=== PATIENT | male | born 1965 | race Caucasian/White ===

== ENCOUNTER 2020-09-13 06:52 | Observation (INO) | payer BC ==
[2020-09-13] MEDS ORDERED: ASPIRIN 81 MG PO STA (07:13)
[2020-09-13] MEDS ORDERED: NITROGLYCERIN SL TABS 0.4 MG TAB SUBLINGUAL STA (07:13)
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
[2020-09-13 07:51] LABS: Basophils % (A) 1 %; Eosinophils # (A) 0.4 k/uL (0-0.7); Eosinophils % (A) 7 %; HCT 48.5 % (39.0-53.0); HGB 16.5 gm/dL (13.0-17.5); Lymphocytes # (A) 1.2 k/uL (1.0-4.8); Lymphocytes % (A) 18 %; MCH 31.9 pg (25.0-35.0); MCV 93.9 fL (80.0-100.0); Mean Platelet Volume 7.7; Monocytes # (A) 0.4 k/uL (0-1.0); Monocytes % (A) 6 %; Neutrophils # (A) 4.6 k/uL (1.3-7.7); Neutrophils % (A) 67 %; Platelet Count 231 k/uL (150-450); RBC 5.16 m/uL (4.30-5.90); RDW 13.3 % (11.5-15.5); WBC 6.8 k/uL (3.8-10.6)
--- NOTE | 2020-09-13 07:54 | XR ---
EXAMINATION TYPE: XR chest 2V DATE OF EXAM: 09/13/2020 COMPARISON: None INDICATION: Pain TECHNIQUE: Frontal and lateral views of the chest are obtained. FINDINGS: The heart size is normal. The pulmonary vasculature is normal. The lungs are clear. Stimulator leads are within the thoracic region. IMPRESSION: 1. No acute pulmonary process.
[2020-09-13 08:00] LABS: ALT 23 U/L (4-49); AST 25 U/L (17-59); African American GFR (CKD) >90 (>60 ml/min/1.73 sqM); Albumin 4.3 g/dL (3.5-5.0); Alkaline Phosphatase 58 U/L (38-126); Amylase 91 U/L (30-110); Anion Gap 8 mmol/L; Blood Urea Nitrogen 18 mg/dL (9-20); Calcium 9.1 mg/dL (8.4-10.2); Carbon Dioxide 26 mmol/L (22-30); Chloride 106 mmol/L (98-107); Glucose 123 mg/dL (74-99); Lipase 200 U/L (23-300); Magnesium 2.1 mg/dL (1.6-2.3); Non-African American GFR(CKD) 87 (>60 ml/min/1.73 sqM); Sodium 140 mmol/L (137-145); Total Bilirubin 1.2 mg/dL (0.2-1.3); Total Protein 7.5 g/dL (6.3-8.2)
[2020-09-13 08:02] LABS: Partial Thromboplastin Time 23.6 sec (22.0-30.0); Prothrombin Time 10.4 sec (9.0-12.0)
[2020-09-13] MEDS ORDERED: MAG HYDROX/AL HYDROX/SIMETH 30 ML, HYOSCYAMINE ELIXIR 10 ML, LIDOCAINE VISCOUS 2% 10 ML PO STA ×3 (08:52)
[2020-09-13] MEDS ORDERED: NITROGLYCERIN SL TABS 0.4 MG TAB SUBLINGUAL PRN (09:36)
--- NOTE | 2020-09-13 12:31 | ECHOF ---
Referral Reason:Chest pain MEASUREMENTS -------- HEIGHT: 175.3 cm WEIGHT: 121.1 kg BP: 145/72 RVIDd: 3.2 cm (< 3.3) IVSd: 1.3 cm (0.6 - 1.1) LVIDd: 4.7 cm (3.9 - 5.3) LVPWd: 1.2 cm (0.6 - 1.1) IVSs: 2.0 cm LVIDs: 3.1 cm LVPWs: 2.0 cm LA Diam: 3.8 cm (2.7 - 3.8) LAESV Index (A-L): 28.75 ml/m Ao Diam: 3.8 cm (2.0 - 3.7) AV Cusp: 2.6 cm (1.5 - 2.6) MV EXCURSION: 17.297 mm (> 18.000) MV EF SLOPE: 106 mm/s (70 - 150) EPSS: 0.9 cm MV E Mikey: 0.84 m/s MV DecT: 211 ms MV A Mikey: 0.59 m/s MV E/A Ratio: 1.43 RAP: 5.00 mmHg RVSP: 26.95 mmHg FINDINGS -------- Sinus rhythm. This was a technically adequate study. The left ventricular size is normal. There is mild concentric left ventricular hypertrophy. Overa ll left ventricular systolic function is normal with, an EF between 60 - 65 %. The right ventricle is normal in size. Normal LA size by volume 22+/-6 ml/m2. The right atrium is normal in size. Interatrial and interventricular septum intact. The aortic valve is trileaflet and appears structurally normal. The mitral valve is normal. Mild tricuspid regurgitation present. Right ventricular systolic pressure is normal at < 35 mmHg. The pulmonic valve was not well visualized. The aortic root is dilated measuring 3.8cm. Normal inferior vena cava with normal inspiratory collapse consistent with estimated right atrial pre ssure of 5 mmHg. There is no pericardial effusion. CONCLUSIONS -------- 1. The left ventricular size is normal. 2. There is mild concentric left ventricular hypertrophy. 3. Overall left ventricular systolic function is normal with, an EF between 60 - 65 %. 4. Mild tricuspid regurgitation present. 5. The aortic root is dilated measuring 3.8cm. 6. There is no pericardial effusion. COMPENSATION AND BENEFITS ADMINISTRATOR: LEOBARDO Umanzor
--- NOTE | 2020-09-13 12:40 | CONS ---
CONSULTATION CHIEF COMPLAINT: Chest pain. Shady is a 55-year-old gentleman with history of chronic back pain via stimulator in the back, came to hospital complaining of chest pain. His discomfort is sharp left- sided goes in a linear fashion. It was not associated with diaphoresis. There was no clear-cut relieving or exacerbating factors. It in fact improved with activity. He read about it online and was concerned that it is his heart. Came to the emergency room and got admitted. EKG does not reveal ischemic changes. Two sets of cardiac enzymes are negative. Hemoglobin is normal. The patient has history of chronic back pain and strong family history of premature coronary artery disease. There is no history of hypertension, diabetes, dyslipidemia. PAST MEDICAL HISTORY: Negative for hypertension, diabetes dyslipidemia. Significant for chronic back pain. MEDICATIONS: Include omeprazole and naproxen along with green tea extract and Darlene. ALLERGIES: PENICILLIN. FAMILY HISTORY: Negative for premature coronary artery disease. SOCIAL HISTORY: Negative for current smoking, EtOH abuse, or drug abuse. REVIEW OF SYSTEMS: HEENT is unremarkable. Cardiac as described above. Respiratory as described above. GI negative. Genitourinary negative. Allergy/Immunology: Negative. Skin negative. Musculoskeletal negative. Endocrine negative. Derm negative. Constitutional negative. Oncological negative. CALL CENTER DISPATCHER negative. Rest of the system review is not relevant. PHYSICAL EXAM: Afebrile. Heart rate is 98 beats a minute. Blood pressure is 130/62, respirations 18, O2 saturation is 96% on room air. There is no jugular venous distention. Carotid upstroke is normal. There is no bruit. Chest exam reveals good air entry bilaterally. Heart exam reveals first and second heart sounds. No gallop. No murmur. No rub. Abdomen is soft, nontender. Exam of extremities did not reveal any edema. Peripheral pulses are felt. CALL CENTER DISPATCHER exam did not reveal focal neurological deficits. ASSESSMENT: Precordial chest pain. PLAN: I will obtain serial troponins to rule out myocardial infarction. Review the echo that he had this morning. I will schedule him for a dobutamine echo tomorrow if the myocardial infarction is ruled out. MMODL / IJN: [id number] /
[2020-09-13] MEDS: PANTOPRAZOLE 40 MG TABLET PO SCH (12:51)
[2020-09-13] MEDS: ENOXAPARIN 40 MG/0.4 ML SYRINGE SQ SCH (12:51)
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
[2020-09-14 04:49] LABS: Cholesterol 180 mg/dL (<200); HDL Cholesterol 41 mg/dL (40-60); LDL Cholesterol,Calculated 108 mg/dL (0-99); Triglycerides 154 mg/dL (<150)
[2020-09-14] MEDS ORDERED: DOBUTamine DRIP for NUC MED 500 MG in DEXTROSE/WATER 1 250ML.BAG IV PRN (08:00)
[2020-09-14] MEDS: PANTOPRAZOLE 40 MG TABLET PO SCH (08:29)
[2020-09-14] MEDS: ENOXAPARIN 40 MG/0.4 ML SYRINGE SQ SCH (08:29)
[2020-09-14] MEDS ORDERED: ASPIRIN 325 MG TAB PO SCH (09:00)
[2020-09-14] MEDS ORDERED: METOPROLOL TARTRATE 5 MG/5 ML VIAL IVP ONE (10:20)
[2020-09-14] MEDS ORDERED: ATROPINE SULFATE 0.1 MG/ML 10ML SYRINGE ONE (10:20)
[2020-09-14] MEDS ORDERED: ACETAMINOPHEN TAB 325 MG TAB PO PRN (11:54)
--- NOTE | 2020-09-14 12:28 | P.PN ---
Subjective Progress Note Date: 09/14/20 HISTORY OF PRESENT ILLNESS: Patient examined this morning at the bedside. Patient denies chest pain or pressure. Denies shortness of breath. Echocardiogram completed revealing ejection fraction 60-65% and mild tricuspid regurgitation. PHYSICAL EXAM: VITAL SIGNS: Reviewed. GENERAL: Well-developed in no acute distress. NECK: Supple. No JVD or thyromegaly LUNGS: Respirations even and unlabored. Lungs essentially clear to auscultation bilaterally. HEART: Regular rate and rhythm. S1 and S2 heard. EXTREMITIES: Normal range of motion. No clubbing or cyanosis. Peripheral pulses intact. No lower extremity edema ASSESSMENT: Precordial chest pain PLAN: Patient underwent between stress test today. Patient did have some ST depression in the recovery phase. However his to be making images did not reveal any abnormalities per Dr. Baeza. Please see full dictated stress test report for further details. Patient may be discharged home today from a cardiac standpoint. Nurse practitioner note has been reviewed by physician. Signing provider agrees with the documented findings, assessment, and plan of care. Objective - Vital Signs Vital signs: Vital Signs Temp 97.5 F L 09/14/20 08:13 Pulse 55 L 09/14/20 08:13 Resp 20 09/14/20 08:13 BP 112/74 09/14/20 08:13 Pulse Ox 97 09/14/20 08:13 Intake & Output 09/13/20 09/14/20 09/14/20 18:59 06:59 18:59 Weight 121.109 kg 121.11 kg Other: Voiding Method Toilet Toilet # Voids 1 1 - Labs CBC & Chem 7: 09/13/20 07:36 09/13/20 07:36 Labs: Abnormal Lab Results - Last 24 Hours (Table) 09/13/20 Range/Units 07:36 Triglycerides 154 H (<150) mg/dL LDL Cholesterol, Calc 108 H (0-99) mg/dL
--- NOTE | 2020-09-14 12:42 | ECHOS ---
STRESS ECHOCARDIOGRAM LUMASON: N/A Vial INDICATIONS: Chest pain. MEDICATIONS: BASELINE HEART RATE: 57 BASELINE BLOOD PRESSURE: 123/53 MAXIMUM HEART RATE: 151 MAXIMUM BLOOD PRESSURE: 161/49 85% MPHR: 139 100% MPHR: 164 METS: N/A MAXIMUM STAGE REACHED: 5 TOTAL EXERCISE TIME: CLINICAL INFORMATION: Baseline EKG shows sinus rhythm, normal axis, normal intervals. Patient was given intravenous dobutamine over a period of 15 minutes as per protocol. Also received 0.5 mg of atropine, achieving 91% of predicted maximal heart rate without chest pain. At peak heart rate, patient had [address]-segment depression in inferolateral leads. Baseline echo shows normal left ventricular size, wall motion and systolic function. Post dobutamine infusion, there is normal hyperdynamic response of all segments of myocardium noted. CONCLUSIONS: 1. Abnormal stress test by EKG criteria. 2. Negative dobutamine stress echo. MMODL / IJN: [id number] /
[2020-09-14 14:50] VITALS: BP 153/76; PULSE 60; RESP 17; TEMP 97
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
== END 2020-09-14 15:06 | disposition home or self-care (01) ==
LOC: EC 06:52 → 6NMEDSUR 09:34
PROVIDERS: ADMIT Hospitalist; ATTEND Hospitalist
DX: R07.89 Other chest pain (principal); K21.9 Gastro-esophageal reflux disease without esophagitis; K82.9 Disease of gallbladder, unspecified; I07.1 Rheumatic tricuspid insufficiency; K44.9 Diaphragmatic hernia without obstruction or gangrene; F41.9 Anxiety disorder, unspecified; R42 Dizziness and giddiness; G89.29 Other chronic pain; M54.9 Dorsalgia, unspecified; M54.2 Cervicalgia; R94.39 Abnormal result of other cardiovascular function study; E66.9 Obesity, unspecified; Z68.39 Body mass index [BMI] 39.0-39.9, adult; F12.90 Cannabis use, unspecified, uncomplicated; Z20.828 Contact with and (suspected) exposure to other viral communicable diseases; Z79.1 Long term (current) use of non-steroidal anti-inflammatories (NSAID); Z79.899 Other long term (current) drug therapy; Z88.0 Allergy status to penicillin; Z96.82 Presence of neurostimulator; Z87.828 Personal history of other (healed) physical injury and trauma; Z87.81 Personal history of (healed) traumatic fracture; Z87.891 Personal history of nicotine dependence; Z80.0 Family history of malignant neoplasm of digestive organs; Z82.49 Family history of ischemic heart disease and other diseases of the circulatory system
CPT/HCPCS: 36415; 71046; 80053; 80061; 82150; 83690; 83735; 84484; 85025; 85610; 85730; 87635; 93005; 93306; 93351; 96372; 99285

== ENCOUNTER → 2024-06-11 | Outpatient (CLI) | payer MEDICARE ==
--- NOTE | 2024-06-11 14:37 | CT ---
INDICATION: Patient age:Male; 58 years old; Reason for study: [facility] Protocol for hip/knee replacement, PAIN IN RIGHT KNEE M25.561; [facility]. COMPARISON: None TECHNIQUE: Thin section axial CT imaging of the entire right lower extremity was performed per [facility] protocol, wi thout the administration of IV contrast. Additional axial images of the bilateral hips and ankles wit h other knee were also obtained. Reformatted images in coronal and sagittal views obtained. FINDINGS: There is no evidence of acute fracture or dislocation. Remote healed fracture deformities of the bilateral superior and inferior pubic rami. Degenerative ch anges of the pubic symphysis. No significant osteophytic changes of the hips. Pelvic phleboliths. Sig moid diverticulosis without evidence for acute diverticulitis. Tricompartmental joint space narrowing with spurring of the right knee consistent with moderate osteo arthritic change. Small superior patellar joint effusion. Right ankles grossly unremarkable. Postsurgical changes of the left ankle with intramedullary lawrence duane ntified within the distal tibia. Remote healed fracture of the distal left fibula. Previous removed s crews identified within the left talus and distal fibula with screw tracks identified. The visualized soft tissues appear grossly unremarkable within the limits of unenhanced CT. IMPRESSION: [facility] protocol for right knee joint replacement. [facility], , 06/11/2024 2:35 PM
== END | disposition home or self-care (01) ==
LOC: RADCTMAIN 11:30
PROVIDERS: ATTEND Orthopaedic Surgery
DX: M17.11 Unilateral primary osteoarthritis, right knee (principal); M25.461 Effusion, right knee; K57.30 Diverticulosis of large intestine without perforation or abscess without bleeding; Z96.651 Presence of right artificial knee joint

== ENCOUNTER → 2024-06-30 | Outpatient (CLI) | payer MEDICARE ==
[2024-06-30 10:16] LABS: Partial Thromboplastin Time 22.2 sec (22.0-30.0)
[2024-06-30 14:48] LABS: HCT 46.9 % (39.6-50.0); HGB 15.4 g/dL (13.0-17.0); MCH 31.8 pg (27.0-32.0); MCHC 32.8 g/dL (32.0-37.0); MCV 96.9 FL (80.0-97.0); Mean Platelet Volume 11.3 FL (9.5-12.2); NRBC Per 100 WBC 0 X 10*3/uL (0.00-0.01); Platelet Count 262 X 10*3/uL (140-440); RBC 4.84 X 10*6/uL (4.40-5.60); WBC 7.11 X 10*3/uL (4.50-10.00)
[2024-06-30 15:05] LABS: ALT 20 U/L (10-49); AST 22 U/L (14-35); Albumin 4.5 g/dL (3.8-4.9); Albumin/Globulin Ratio 1.61 Ratio (1.60-3.17); Alkaline Phosphatase 61 U/L (41-126); BUN/Creat Ratio 16.73 Ratio (12.00-20.00); Blood Urea Nitrogen 18.4 mg/dL (9.0-27.0); Calcium 9.3 mg/dL (8.7-10.3); Carbon Dioxide 25.2 mmol/L (21.6-31.8); Chloride 105 mmol/L (96-109); Globulin 2.8 g/dL (1.6-3.3); Glucose 112 mg/dL (70-110); Potassium 4.4 mmol/L (3.5-5.5); Sodium 141 mmol/L (135-145); Total Bilirubin 0.9 mg/dL (0.3-1.2); Total Protein 7.3 g/dL (6.2-8.2)
[2024-06-30 15:07] LABS: INR 0.9 (<1.2); Prothrombin Time 10.3 sec (10.0-12.5)
== END | disposition home or self-care (01) ==
LOC: LABPAT 09:18
PROVIDERS: ATTEND Orthopaedic Surgery
DX: Z01.818 Encounter for other preprocedural examination (principal); Z22.322 Carrier or suspected carrier of Methicillin resistant Staphylococcus aureus; E11.9 Type 2 diabetes mellitus without complications; M17.11 Unilateral primary osteoarthritis, right knee
CPT/HCPCS: 36415; 80053; 83036; 85027; 85610; 85730; 87070; 93005

== ENCOUNTER 2024-07-25 10:22 | Day surgery (SDC) | payer MEDICARE ==
[~2024-07-25 10:22] MED LIST: LIDOCAINE 1% (10MG/ML) FOR IV START INTRADERMA PRN; TRANEXAMIC 1,000 MG/100ML-NACL 1,000 MG in SALINE 1 100ML.BAG IV PRN; TRANEXAMIC 1,000 MG/100ML-NACL 1,000 MG in SALINE 1 100ML.BAG IVPB PRN; VANCOMYCIN 1,000 MG in SODIUM CHLORIDE 0.9% 250 ML IVPB PRN; fentaNYL (PF) 50 MCG/ML 2 ML AMP IVP PRN
[2024-07-25] MEDS: IV FLUID CONTINUATION 1,000 ML IV ONE (11:19)
[2024-07-25] MEDS: ACETAMINOPHEN TAB 500 MG TAB PO PRN (11:45)
[2024-07-25] MEDS: DOCUSATE 100 MG CAP PO PRN (11:45)
[2024-07-25] MEDS: oxyCODONE ER 10 MG TAB.ER.12H PO PRN (11:45)
[2024-07-25] MEDS: FAMOTIDINE 20 MG/2 ML VIAL IVP PRN (11:46)
[2024-07-25] MEDS: ONDANSETRON 4 MG/2 ML VIAL IVP PRN (11:46)
[2024-07-25] MEDS: KETOROLAC 15 MG/ML 1 ML VIAL IVP PRN (11:46)
[2024-07-25] MEDS: DEXAMETHASONE SOD PHOSPHATE 10 MG/ML 1 ML VIAL IV PRN (11:47)
[2024-07-25] MEDS: LACTATED RINGERS 1,000 ML IV SCH (11:47)
[2024-07-25] MEDS: MIDAZOLAM 2 MG/2 ML VIAL IV PRN (11:53)
--- NOTE | 2024-07-25 12:08 | P.ANPRN ---
Procedure Note - Anesthesia - Nerve Block Performed Right [place] Single Time Out Performed: Yes Date of Procedure: 07/25/24 Procedure Start Time: 11:52 Procedure Stop Time: 11:57 Location of Patient: PreOp Indication: Acute Post-Operative Pain, Analgesia, Requested by Surgeon Sedation Type: Sedate with meaningful contact maintained Preparation: Sterile Prep Position: Left Lateral Needle Types: Pajunk Needle Gauge: 21 Ultrasound used to visualize needle placement: Yes Ultrasound used to observe medication spread: Yes Injectate: 0.5% Ropivacaine (see comment for volume) (Ropiv 20ml+[id number]) Blood Aspirated: No Pain Paresthesia on Injection Noted: No Resistance on Injection: Normal Image Stored and Saved: Yes Events: Uneventful and Well Tolerated
--- NOTE | 2024-07-25 12:09 | P.ANPRN ---
Procedure Note - Anesthesia - Nerve Block Performed Right [place] Single Time Out Performed: Yes Date of Procedure: 07/25/24 Procedure Start Time: 11:57 Procedure Stop Time: 12:02 Location of Patient: PreOp Indication: Acute Post-Operative Pain, Analgesia, Requested by Surgeon Sedation Type: Sedate with meaningful contact maintained Preparation: Sterile Prep Position: Supine Catheter: None Needle Types: Pajunk Needle Gauge: 21 Ultrasound used to visualize needle placement: Yes Ultrasound used to observe medication spread: Yes Injectate: 0.5% Ropivacaine (see comment for volume) (Ropiv 20ml+Decadron 4mg) Blood Aspirated: No Pain Paresthesia on Injection Noted: No Resistance on Injection: Normal Image Stored and Saved: Yes Events: Uneventful and Well Tolerated
[2024-07-25] MEDS ORDERED: DEXAMETHASONE SOD PHOSPHATE 4 MG/ML 1 ML VIAL ONE (12:37)
[2024-07-25] MEDS ORDERED: PHENYLEPHRINE-0.9% NACL SYG 1,000 MCG/10 ML SYRINGE ONE (12:37)
[2024-07-25] MEDS ORDERED: MIDAZOLAM 2 MG/2 ML VIAL ONE (12:37)
[2024-07-25] MEDS ORDERED: GLYCOPYRROLATE 0.2 MG/ML 2 ML VIAL ONE (12:37)
[2024-07-25] MEDS ORDERED: PROPOFOL 10 MG/ML 20 ML VIAL IV ONE (12:37)
[2024-07-25] MEDS ORDERED: SUCCINYLCHOLINE CHLORIDE 200 MG/10 ML VIAL IV ONE (12:37)
[2024-07-25] MEDS ORDERED: ROCURONIUM 10 MG/ML (5 ML VIAL) IV ONE (12:37)
[2024-07-25] MEDS ORDERED: TRANEXAMIC 1,000 MG/100ML-NACL PREMIX BAG ONE (12:37)
[2024-07-25] MEDS ORDERED: NEOSTIGMINE 1 MG/ML 10 ML VIAL ONE (12:37)
[2024-07-25] MEDS ORDERED: fentaNYL (PF) 50 MCG/ML 2 ML AMP ONE (12:37)
[2024-07-25] MEDS ORDERED: ROPIVACAINE 5 MG/ML 30 ML VIAL ONE (12:37)
[2024-07-25] MEDS: ROPIVACAINE/EPI/CLONIDINE/KET 50 ML SYRINGE MISCELLANE PRN (13:09)
[2024-07-25] MEDS: LACTATED RINGERS 1,000 ML IV ONE (14:09)
[2024-07-25] MEDS ORDERED: HYDROcodone/APAP 5-325MG 1 EACH TAB PO PRN (14:39)
[2024-07-25] MEDS ORDERED: diazePAM 5 MG TAB PO PRN (14:39)
[2024-07-25] MEDS ORDERED: NA PHOS,M-B/NA PHOS,DI-BA 133 ML ENEMA RECTAL PRN (14:39)
[2024-07-25] MEDS ORDERED: ONDANSETRON 4 MG/2 ML VIAL IVP PRN (14:39)
[2024-07-25] MEDS ORDERED: bisacodyL 10 MG SUPP RECTAL PRN (14:39)
[2024-07-25] MEDS ORDERED: MAGNESIUM HYDROXIDE 2,400 MG/30 ML CUP PO PRN (14:39)
[2024-07-25] MEDS ORDERED: TEMAZEPAM 15 MG CAP PO PRN (14:39)
[2024-07-25] MEDS ORDERED: HYDROmorphone 0.5 MG/0.5 ML SYRINGE IVP PRN ×2 (14:39)
[2024-07-25] MEDS ORDERED: NALOXONE 0.4 MG/ML 1 ML VIAL IV PRN (14:39)
--- NOTE | 2024-07-25 14:39 | P.OP ---
Date of Procedure: 07/25/24 Preoperative Diagnosis: 1. Severe right knee osteoarthritis Postoperative Diagnosis: Same Procedure(s) Performed: 1. Right total knee arthroplasty 2. Computer assisted musculoskeletal navigation using CT/MRI images Implants: 1. [place] [employer] CR Femur Size #4 2. [place] [employer] [place] Tibial Base Size #4 3. [place] [employer] CS poly Size #4, 9-mm 4. [place] [employer] all poly patella, Size #35 Anesthesia: MARLENE, regional Surgeon: Miguel Carey Banquet Supervisor #1: Willie Vega Estimated Blood Loss (ml): 100 IV fluids (ml): 800 Pathology: none sent Condition: stable Disposition: PACU Indications for Procedure: I met with the patient preoperatively in the office setting and discussed treatment of their symptomatic knee arthritis. They failed a long course of nonsurgical treatment and elected to proceed with an elective total knee replacement. I discussed the potential risks and complications at length and gave them ample time to ask questions. Risks discussed included: risks from anesthesia, superficial site surgical infection, acute and/or chronic periprosthetic joint infection, delayed wound healing, drainage, wound necrosis, instability, stiffness, stiffness requiring manipulation and/or revision surgery, damage to local blood vessels or nerves, aseptic loosening of the implants, extensor mechanism issues including disruption, patellar maltracking, avascular necrosis etc., continued or worsened knee pain, generalized dissatisfaction with surgical outcome, need for revision surgery, an inability to regain preinjury level of function, DVT, PE, other medical complications, and possibly loss of life or limb. The patient voiced their understanding that while these are the most common complications other less common complications are possible. They provided both their verbal and written consent to go forward with surgery. Operative Findings: Severe tri-compartmental arthritis Description of Procedure: The patient was identified in preoperative holding and the correct operative extremity was verified and marked with a marker. I reviewed the consent form with the patient at length. All of their questions were answered. The patient was given a block by anesthesia. They were then brought back to the operating room. They were transferred onto the operating room table where a general anesthetic, preoperative antibiotics, and tranexamic acid were administered by anesthesia. A tourniquet was applied to the proximal aspect of the operative extremity. The contralateral extremity was padded under the heel and secured to the operating room table with a nonsterile blue towel and tape. The ipsilateral arm was carefully draped across the patient's chest and secured with a pillow and foam. A post was applied over the lateral aspect of the ipsilateral thigh and a bolster was placed under the ipsilateral foot. I verified that the operative extremity was stable and the knee was flexed to 90. The operative extremity was then placed in a leg robert, nonsterile drapes were applied, and the extremity was prepped and draped sterilely in the standard sterile fashion. Prior to starting surgery timeout was performed identifying the correct patient, operative extremity, and procedure. The leg was then elevated, exsanguinated with an Esmarch bandage, and the tourniquet was inflated. An anterior midline incision was made sharply with a scalpel. Once I had dissected deep to the superficial fascial layer medial and lateral flaps were elevated. A medial parapatellar arthrotomy was created. Upon opening the knee joint there were diffuse arthritic changes in all 3 compartments. The anterior horn of the medial meniscus were sharply released and a medial release was performed around the posterior medial corner of the knee to facilitate retractor placement. The fat pad was excised with electrocautery. The patella was found to be severely arthritic and a provisional cut was made with a sagittal saw to facilitate mobilization of the extensor mechanism during the procedure. Remnants of the ACL and PCL were then excised from the notch. 4 mm pins were then placed within the incision in the medial distal femur and proximal tibia. Arrays were applied to the pins and I verified they were completely tightened. The knee was then registered with the [employer] robot and manipulations in implant position were made to balance the knee and opitmize implant position. Using the Eric robotic saw all cuts were made in accordance with our plan. After all bony fragments had been removed the cuts were verified with the planar probe. The tibia was then subluxed forward and sized. The knee was brought into flexion and a lamina archeology professor was placed to allow removal of the meniscal remnants both medially and laterally as well as posterior osteophytes. Local anesthetic was then infiltrated around the joint capsule. Trial implants were then placed within the knee. Range of motion and collateral ligament tension was then evaluated. Adjustments in implant size and position were then made accordingly. Once the knee was felt to be appropriately balanced the Eric pins were removed. The patella was then recut, sized, and punched. A trial patellar button was then placed. With the trial components in place, the patella tracked midline. The femur was then drilled and the trial component removed. The trial tibial component was then appropriately rotated, pinned, and prepared for the keel. All trial components were then removed from the knee. The knee was thoroughly irrigated with pulsatile lavage. Cement was prepared via vacuum mixing in a bowl on the back table. I then hand pressurized cement into the femur and tibia and placed the implants beginning with the tibial base tray and poly liner, femoral component, and finally the patellar button. All extruded cement was removed including from the pin sites. Once the cement had hardened the knee was evaluated one final time with the final polyethylene liner in place. The knee had full extension and flexion and felt stable to varus and valgus stress throughout the arc of motion. The tourniquet was released and with the tourniquet down the patella tracked midline. All bleeders were controlled with electrocautery. The knee was then soaked for 3 minutes with a dilute Betadine soak. The knee was thoroughly irrigated using 3 L of sterile saline and pulsatile lavage. The extensor mechanism was then reapproximated using pop off Vicryl sutures followed by a running barbed suture. The knee was then closed in layers with a 0 strata fix for the deep fascial layer, 2-0 strata fix for the superficial subcutaneous layer and Monocryl and Steri-Strips for the skin. A sterile dressing was applied. I verified that all instrument, sponge, and sharp counts were correct. The patient was then transferred off the operating room table, extubated, and brought to recovery having tolerated the procedure well. Willie Vega PA-C was required as a skilled asset protection assistant for patient positioning, draping, exposure, retraction, closure of wound and application of dressing PLAN: The patient can weight-bear as tolerated on the operative extremity. DVT prophylaxis with aspirin 81 mg twice a day based on preoperative risk stratification. Internal medicine for perioperative medical management. 2 doses of post-operative antibiotics. Physical therapy for gait training. Follow-up in the office in 2 weeks for wound check and x-rays of the knee including an AP and lateral.
[2024-07-25] MEDS: HYDROmorphone 0.5 MG/0.5 ML SYRINGE IVP PRN (14:58)
--- NOTE | 2024-07-25 15:19 | XR ---
EXAMINATION TYPE: XR knee limited RT DATE OF EXAM: 07/25/2024 3:13 PM COMPARISON: None. CLINICAL INDICATION: Male, 59 years old with history of Evaluation for Postop abnormality and alignme nt, pain TECHNIQUE: 2 view(s) obtained. FINDINGS: Tibial and femoral components of unplaced. Post surgical soft tissue changes are present. No acute fr actures are evident. IMPRESSION: 1. No acute osseous abnormality post knee replacement [facility], , 07/25/2024 3:16 PM
[2024-07-25] MEDS: DEXAMETHASONE SOD PHOSPHATE 4 MG/ML 1 ML VIAL IV ONE (16:53)
[2024-07-25] MEDS: ONDANSETRON 4 MG/2 ML VIAL IVP ONE (16:53)
[2024-07-25] MEDS: SODIUM CHLORIDE 0.9% 1,000 ML IV SCH (16:54)
[2024-07-25] MEDS: HYDROcodone/APAP 10-325MG 1 EACH TAB PO PRN (19:52)
[2024-07-25] MEDS: ASPIRIN 81 MG PO SCH (19:53)
[2024-07-25] MEDS: SENNOSIDES-DOCUSATE SODIUM 1 EACH TAB PO SCH (19:53)
[2024-07-26] MEDS: HYDROmorphone 1 MG/ML 1 ML SYRINGE IVP PRN (00:31)
[2024-07-26 07:26] VITALS: BP 114/72; PULSE 52; RESP 18; TEMP 97.6
--- NOTE | 2024-07-26 09:53 | P.DS ---
Providers Attending physician: Miguel Carey Consults: 07/25/24 14:39 Consult Physician Routine Consulting Provider: Melida Davila Consult Reason/Comments: post op medical management Do you want consulting provider notified?: Yes Primary care physician: Lisa Pena [facility] Course: the patient is a very pleasant 59-year-old male who is admitted under my care and underwent uncomplicated total knee replacement. Following surgery he was transferred to the orthopedic floor. He received 2 doses of postoperative antibiotics. He was started on DVT prophylaxis with aspirin. He was seen on postoperative day #1 and was doing well. His pain was controlled. His dressing over the right knee was intact. There is mild swelling in the thigh and Both are soft and compressible. Femoral nerve function was intact. He is able to actively plantar flex and dorsiflex his ankle and his toes. The physical therapy and did well. Internal medicine was consulted for postoperative medical management. The patient had some urinary retention postoperatively. He also tolerated well was cleared for discharge home. Patient Condition at Discharge: Good Plan - Discharge Summary Discharge Rx Participant: Yes New Discharge Prescriptions: New Docusate [Colace] 100 mg PO BID #60 capsule Omeprazole [PriLOSEC] 40 mg PO DAILY #30 cap Aspirin 81 mg PO BID #60 tab Diclofenac Sodium [Voltaren] 75 mg PO BID #60 tab HYDROcodone/APAP 5-325MG [Guild 5-325] 1 - 2 tab PO Q6HR PRN #56 tab PRN Reason: Pain Ondansetron [Zofran] 4 mg PO Q8HR PRN #20 tab PRN Reason: Nausea No Action Omeprazole 20 mg PO DAILY Green Tea [place] Extract [Green Tea Extract] 315 mg PO MOTH Multivitamin [Multivitamins Adult Gummies] 1 tab PO DAILY Meloxicam [Mobic] 7.5 mg PO BID PRN PRN Reason: Pain Acetaminophen [Tylenol Arthritis] 1,300 mg PO BID PRN PRN Reason: Pain [place]-3/Dha/Epa/Fish Oil [[place]-3 Fish Oil 1,000 mg Sfgl] 1 tab PO MOWEFR Cider Vinegar [Apple Cider Vinegar] 500 mg PO DAILY Beet Root 1 tab PO DAILY Garlic Extract [Garlic] 1 tab PO MOWEFR Discharge Medication List Green Tea Dumb [place] Extract [Green Tea Extract] 315 mg PO MOTH 09/13/20 [History] Omeprazole 20 mg PO DAILY 09/13/20 [History] Acetaminophen [Tylenol Arthritis] 1,300 mg PO BID PRN 07/18/24 [History] Beet Root 1 tab PO DAILY 07/18/24 [History] Cider Vinegar [Apple Cider Vinegar] 500 mg PO DAILY 07/18/24 [History] Garlic Extract [Garlic] 1 tab PO MOWEFR 07/18/24 [History] Meloxicam [Mobic] 7.5 mg PO BID PRN 07/18/24 [History] Multivitamin [Multivitamins Adult Gummies] 1 tab PO DAILY 07/18/24 [History] [place]-3/Dha/Epa/Fish Oil [[place]-3 Fish Oil 1,000 mg Sfgl] 1 tab PO MOWEFR 07/18/24 [History] Aspirin 81 mg PO BID #60 tab 07/26/24 [Rx] Diclofenac Sodium [Voltaren] 75 mg PO BID #60 tab 07/26/24 [Rx] Docusate [Colace] 100 mg PO BID #60 capsule 07/26/24 [Rx] HYDROcodone/APAP 5-325MG [Guild 5-325] 1 - 2 tab PO Q6HR PRN #56 tab 07/26/24 [Rx] Omeprazole [PriLOSEC] 40 mg PO DAILY #30 cap 07/26/24 [Rx] Ondansetron [Zofran] 4 mg PO Q8HR PRN #20 tab 07/26/24 [Rx] Follow up Appointment(s)/Referral(s): Miguel Caery MD [Medical Doctor] - 2 Weeks Activity/Diet/Wound Care/Special Instructions: 1. Weight-bear as tolerated on your operative extremity unless instructed otherwise. Use a walker or other assistive device to ambulate. 2. Leave surgical dressing in place. If your dressing becomes saturated with blood, there is drainage, or the dressing becomes loose please contact the office. 3. It is okay to shower with your surgical dressing, but do not submerge in water (no hot tubs, bath's, swimming etc.) 4. Make sure to take her blood clot prevention medication as prescribed (aspirin, Eliquis, Xarelto, and Plavix are commonly prescribed medications for blood clot prevention) 5. While taking Guild or Percocet for pain make sure you're taking a stool softener (Colace) and drink lots of water. 6. Keep all follow-up appointments as scheduled. You will usually be seen in 1-2 weeks following surgery. 7. Please contact the office with any questions or concerns [phone] Discharge Disposition: HOME WITH HOME HEALTH SERVICES
[2024-07-26 09:57] LABS: Basophils # (A) 0.02 X 10*3/uL (0.00-0.10); Basophils % (A) 0.1 %; Eosinophils # (A) 0 X 10*3/uL (0.04-0.35); Eosinophils % (A) 0 %; HCT 41.1 % (39.6-50.0); HGB 13.5 g/dL (13.0-17.0); Lymphocytes # (A) 0.94 X 10*3/uL (0.90-5.00); Lymphocytes % (A) 6.5 %; MCH 31.3 pg (27.0-32.0); MCHC 32.8 g/dL (32.0-37.0); MCV 95.4 FL (80.0-97.0); Mean Platelet Volume 10.9 FL (9.5-12.2); Monocytes # (A) 0.67 X 10*3/uL (0.20-1.00); Monocytes % (A) 4.6 %; NRBC Per 100 WBC 0 X 10*3/uL (0.00-0.01); Neutrophils # (A) 12.79 X 10*3/uL (1.80-7.70); Neutrophils % (A) 88.2 %; Platelet Count 215 X 10*3/uL (140-440); RBC 4.31 X 10*6/uL (4.40-5.60); RDW 12.9 % (11.5-14.5)
[2024-07-26] MEDS ORDERED: TAMSULOSIN 0.4 MG CAP.ER.24H PO SCH (12:30)
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
== END 2024-07-26 13:41 | disposition home health service (06) ==
LOC: OR 10:22 → 4SSUR 14:47 → OR 07-26 13:41
PROVIDERS: ATTEND Orthopaedic Surgery
DX: M17.11 Unilateral primary osteoarthritis, right knee (principal); F17.210 Nicotine dependence, cigarettes, uncomplicated; R94.31 Abnormal electrocardiogram [ECG] [EKG]; K21.9 Gastro-esophageal reflux disease without esophagitis; R33.9 Retention of urine, unspecified; G47.00 Insomnia, unspecified; Z82.49 Family history of ischemic heart disease and other diseases of the circulatory system; Z01.810 Encounter for preprocedural cardiovascular examination; Z88.0 Allergy status to penicillin; Z79.899 Other long term (current) drug therapy
CPT/HCPCS: 0055T; 27447; 64447; 64999; 85025; 94760